=== PATIENT | male | born 1990 | race African-American/Black ===

== ENCOUNTER 2019-02-14 18:50 | Emergency (ER) | payer OTHER ==
[2019-02-14 19:47] VITALS: RESP 16
--- NOTE | 2019-02-14 20:30 | ED ---
URI HPI - General Chief Complaint: Upper Respiratory Infection Stated Complaint: flu symptoms Time Seen by Provider: 02/14/19 20:28 Source: patient Mode of arrival: ambulatory Limitations: no limitations - History of Present Illness Initial Comments: Patient is a 28-year-old male presenting to the emergency Department with complaints of a cough, fever, body aches that happened suddenly this morning. Patient states he had a mild cough yesterday but the majority of his symptoms started earlier today. Patient states he did take ibuprofen earlier in the day. He denies any shortness of breath, abdominal pain, vomiting. He does admit to mild nausea. He has no other complaints at this time. Patient has no pertinent past medical history. Upon arrival to the ER, temperature is 99.5, rest of vitals are normal. - Related Data Previous Rx's Medication Instructions Recorded Oseltamivir [Tamiflu] 75 mg PO Q12HR 5 Days #10 cap 02/14/19 Allergies Allergy/AdvReac Type Severity Reaction Status Date / Time No Known Allergies Allergy Verified 02/14/19 19:46 Review of Systems ROS Statement: Those systems with pertinent positive or pertinent negative responses have been documented in the HPI. ROS Other: All systems not noted in ROS Statement are negative. Past Medical History Past Medical History: No Reported History History of Any Multi-Drug Resistant Organisms: None Reported Past Surgical History: No Surgical Hx Reported Past Psychological History: Anxiety Smoking Status: Current every day smoker Past Alcohol Use History: Rare Past Drug Use History: Marijuana General Exam - General Exam Comments Initial Comments: GENERAL: Well-appearing, well-nourished and in no acute distress. HEAD: Atraumatic, normocephalic. EYES: Pupils equal round and reactive to light, extraocular movements intact, sclera anicteric, conjunctiva are normal. ENT: TMs normal, nares patent, oropharynx clear without exudates. Moist mucous membranes. NECK: Normal range of motion, supple without lymphadenopathy or JVD. LUNGS: Breath sounds clear to auscultation bilaterally and equal. No wheezes rales or rhonchi. HEART: Regular rate and rhythm without murmurs, rubs or gallops. ABDOMEN: Soft, nontender, normoactive bowel sounds. No guarding, no rebound. No masses appreciated. EXTREMITIES: Normal range of motion, no pitting or edema. No clubbing or cyanosis. NEUROLOGICAL: Normal speech, normal gait. PSYCH: Normal mood, normal affect. SKIN: Warm, Dry, normal turgor, no rashes or lesions noted. Limitations: no limitations Course Vital Signs 02/14/19 02/14/19 19:41 20:33 Temperature 99.5 F 99.2 F Pulse Rate 85 75 Respiratory 16 16 Rate Blood Pressure 121/75 118/64 O2 Sat by Pulse 97 96 Oximetry Medical Decision Making - Medical Decision Making Patient is a 20-year-old male presenting with cough, body aches, fever that started earlier today. Patient's exam is unremarkable. Patient is informed positive. I discussed these results with the patient. Patient will be started on Tamiflu and will continue with ibuprofen as needed. He is in agreement with this plan of care. Return parameters were discussed with the patient he verbalizes understanding. - Lab Data Lab Results 02/14/19 Range/Units 19:50 Influenza Type A RNA Detected H (Not Detectd) Influenza Type B (PCR) Not Detected (Not Detectd) Disposition Clinical Impression: Influenza Disposition: HOME SELF-CARE Condition: Stable Instructions (If sedation given, give patient instructions): Influenza (ED) Additional Instructions: Please return to the Emergency Department if symptoms worsen or any other concerns. Take prescription as indicated. The continue with Tylenol or Motrin for fever control and body aches. Prescriptions: Oseltamivir [Tamiflu] 75 mg PO Q12HR 5 Days #10 cap Is patient prescribed a controlled substance at d/c from ED?: No Referrals: None,Stated [Primary Care Provider] - 1-2 days
[2019-02-14 20:39] VITALS: BP 118/64; PULSE 75; TEMP 99.2
== END 2019-02-14 20:39 | disposition home or self-care (01) ==
LOC: EC 18:50
DX: J11.1 Influenza due to unidentified influenza virus with other respiratory manifestations (principal); F17.200 Nicotine dependence, unspecified, uncomplicated
CPT/HCPCS: 87502; 99283

== ENCOUNTER → 2022-04-21 | Outpatient (CLI) | payer OTHER ==
--- NOTE | 2022-04-21 12:21 | MR ---
EXAMINATION TYPE: MR lumbar spine wo con DATE OF EXAM: 04/21/2022 COMPARISON: None HISTORY: Chronic LBP, BLE radiculopathy. TECHNIQUE: Multiplanar, multisequence images of the lumbar spine were acquired without IV contrast. FINDINGS: Lumbar segments are intact. No paraspinal masses are identified. Conus medullaris has a normal appe arance. L1-L2: Normal disc appearance without desiccation. No herniation, protrusion or disc bulging. No ca nal stenosis is present. Foramina are patent bilaterally. L2-L3: Normal disc appearance without desiccation. No herniation, protrusion or disc bulging. No ca nal stenosis is present. Foramina are patent bilaterally. L3-L4: Normal disc appearance without desiccation. No herniation, protrusion or disc bulging. No ca nal stenosis is present. Foramina are patent bilaterally. L4-L5: Normal disc appearance without desiccation. No herniation, protrusion or disc bulging. No ca nal stenosis is present. Foramina are patent bilaterally. L5-S1: Intervertebral disc space narrowing with disc desiccation and type II Modic changes involving the inferior endplate of L5 and superior endplate of S1. Broad-based disc bulge without significant c entral canal stenosis. Mild bilateral facet arthropathy. Mild bilateral neuroforaminal stenosis. IMPRESSION: 1. No evidence for disc herniation or central canal stenosis. 2. Moderate degenerative disc disease at L5-S1 with facet arthropathy and mild bilateral neuroforami nal stenosis.
== END | disposition home or self-care (01) ==
LOC: RADMRIMAIN 11:32
PROVIDERS: ATTEND Nurse Practitioner Acute Care
DX: M51.17 Intervertebral disc disorders with radiculopathy, lumbosacral region (principal); M51.9 Unspecified thoracic, thoracolumbar and lumbosacral intervertebral disc disorder; M47.26 Other spondylosis with radiculopathy, lumbar region; M99.73 Connective tissue and disc stenosis of intervertebral foramina of lumbar region
CPT/HCPCS: 72148